=== PATIENT | female | born 1960 | race Caucasian/White ===

== ENCOUNTER 2020-01-12 12:12 | Emergency (ER) | payer MEDICAID ==
[~2020-01-12] VITALS: Ht 175.3 cm; Wt 71.4 kg
[2020-01-12 12:22] VITALS: Ht 175.3 cm; Wt 71.4 kg
[2020-01-12] MEDS ORDERED: CYMBALTA30 MG PO (12:24)
[2020-01-12] MEDS ORDERED: CLOZARIL100 MG PO (12:25)
[2020-01-12] MEDS ORDERED: CLOZAPINE200 MG PO (12:25)
[2020-01-12] MEDS ORDERED: LISINOPRIL20 MG PO (12:25)
[2020-01-12] MEDS ORDERED: GLUCOPHAGE500 MG PO (12:26)
[2020-01-12] MEDS ORDERED: GLUCOTROL 5 MG T5 MG PO (12:26)
[2020-01-12 13:21] LABS: BASOPHILS 0.2 % (0-2); EOSINOPHILS 0.6 % (0-7); HEMATOCRIT 38.6 % (36.0-48.0); HEMOGLOBIN 13.2 g/dL (12-16); IMMATURE GRANULOCYTES 0.5 % (0-5); LYMPHOCYTES 23.1 % (15-50); MCH 30.1 pg (26.0-34.0); MCHC 34.2 g/dL (31.0-37.0); MCV 87.9 fL (80.0-100.0); MEAN PLATELET VOLUME 8.2 fL (7.4-10.4); MONOCYTES 6.5 % (2-11); NEUTROPHILS 69.1 % (40-80); PLATELET COUNT 283 10x3/uL (130-400); RBC 4.39 10x6/uL (4.00-5.40); WBC 10.3 10x3/uL (4.8-10.8)
[2020-01-12 13:32] LABS: ANION GAP 12.7 mmol/L (8-16); CALCIUM 8.9 mg/dL (8.5-10.1); CARBON DIOXIDE 25.6 mmol/L (21.0-32.0); CREATININE - SERUM 1.1 mg/dL (0.6-1.3); POTASSIUM - SERUM 3.3 mmol/L (3.5-5.1)
[2020-01-12 13:39] LABS: ACETAMINOPHEN 2.6 ug/mL (10.0-30.0); ALBUMIN 3.3 g/dL (3.4-5.0); BILIRUBIN - TOTAL 0.63 mg/dL (0.2-1.3); MAGNESIUM - SERUM 1.8 mg/dL (1.8-2.4); PROTEIN - SERUM 6.9 g/dL (6.4-8.2)
[2020-01-12 13:42] LABS: UDS - AMPHET NEGATIVE QUAL (NEGATIVE); UDS - BARB NEGATIVE QUAL (NEGATIVE); UDS - BENZO NEGATIVE QUAL (NEGATIVE); UDS - COCAINE NEGATIVE QUAL (NEGATIVE); UDS - OPIATE NEGATIVE QUAL (NEGATIVE); UDS - PCP NEGATIVE QUAL (NEGATIVE); UDS - THC POSITIVE QUAL (NEGATIVE)
[2020-01-12 13:43] LABS: BILIRUBIN NEGATIVE (NEGATIVE); GLUCOSE NEGATIVE (NEGATIVE); KETONE SMALL mg/dL (NEGATIVE); NITRITE NEGATIVE (NEGATIVE); SPECIFIC GRAVITY 1.015 (1.005-1.020); UROBILINOGEN NORMAL (NORMAL)
[2020-01-12 20:08] VITALS: BP 115/85
== END 2020-01-12 20:08 ==
LOC: D.ER 12:12
PROVIDERS: Emergency Medicine
DX: E87.6 Hypokalemia (principal); E87.1 Hypo-osmolality and hyponatremia; W19.XXXA Unspecified fall, initial encounter; Y93.9 Activity, unspecified; Y92.9 Unspecified place or not applicable; E11.9 Type 2 diabetes mellitus without complications; J44.9 Chronic obstructive pulmonary disease, unspecified; R41.82 Altered mental status, unspecified; Z79.84 Long term (current) use of oral hypoglycemic drugs; Z72.0 Tobacco use